=== PATIENT | male | born 1980 | race Caucasian/White ===

== ENCOUNTER 2021-05-20 19:29 | Emergency (ER) | payer OTHER ==
[2021-05-20] MEDS ORDERED: SILVER NITRATE 75% APPLIC STCK 1 PKT EACH ONE (20:04)
[2021-05-20 20:13] VITALS: BP 163/96; PULSE 104; TEMP 98; BMI 25.8
== END 2021-05-20 20:30 | disposition home or self-care (01) ==
LOC: FER 19:29
DX: R04.0 Epistaxis (principal)
CPT/HCPCS: 99283-25